=== PATIENT | male | born 1995 | race American Indian/Alaskan Native ===

== ENCOUNTER 2022-02-07 12:01 | Emergency (ER) | payer SELFPAY ==
--- NOTE | 2022-02-07 12:40 | Emergency Department Report ---
ED Dysuria HPI - HPI Chief Complaint: Urogenital-Male Stated Complaint: GROIN/URINE DISCOMFORT Time Seen by Provider: 02/07/22 12:13 Duration: 2 Days Location of Discomfort: Suprapubic Severity: Mild Symptoms: Dysuria: Yes, Frequency: No, Suprapubic Pain: No, Flank Pain: No, Fever: No, Hematuria: Yes, Abdominal Pain: No, Previous UTI's: No Other History: Patient is a 26-year-old male that comes in with discharge and dysuria. He is concerned for STI. No fever or chills. Denies HIV. Having sex with women. ED Review of Systems ROS: Stated complaint: GROIN/URINE DISCOMFORT Other details as noted in HPI Comment: All other systems reviewed and negative ED Past Medical Hx - Past Medical History Previous Medical History?: Yes Hx Asthma: Yes - Surgical History Past Surgical History?: No - Family History Family history: no significant - Social History Smoking Status: Current Some Day Smoker Substance Use Type: Marijuana - Medications Home Medications: Home Medications Medication Instructions Recorded Confirmed Last Taken Type Azithromycin [Zithromax Z-JAELYN] 1,000 mg PO ONCE #4 02/07/22 Unknown Rx DOXYCYCLINE Hyclate [Vibramycin 100 mg PO Q12HR #20 capsule 02/07/22 Unknown Rx CAP] metroNIDAZOLE [Flagyl] 2,000 mg PO ONCE #4 tab 02/07/22 Unknown Rx Dysuria Exam - Exam General: Vital signs noted. No distress. Alert and acting appropriately. Exam: Yes Moist Mucous Membranes, No CVA Tenderness, No Abdominal Tenderness, No Rigidity or Guarding ED Course Vital Signs 02/07/22 12:10 Temperature 97.4 F L Pulse Rate 86 Respiratory 16 Rate Blood Pressure 104/67 [Left] O2 Sat by Pulse 97 Oximetry ED Medical Decision Making - Medical Decision Making Lab Results 02/07/22 Range/Units 13:39 Urine Color Yellow (Yellow) Urine Turbidity Clear (Clear) Urine pH 6.0 (5.0-7.0) Ur Specific [place] 1.029 (1.003-1.030) Urine Protein 30 mg/dl (Negative) mg/dL Urine Glucose (UA) Neg (Negative) mg/dL Urine Ketones 20 (Negative) mg/dL Urine Blood Neg (Negative) Urine Nitrite Neg (Negative) Urine Bilirubin Neg (Negative) Urine Urobilinogen 2.0 (<2.0) mg/dL Ur Leukocyte Esterase Mod (Negative) Urine WBC (Auto) 159.0 H (0.0-6.0) /HPF Urine RBC (Auto) 5.0 (0.0-6.0) /HPF U Epithel Cells (Auto) 11.0 (0-13.0) /HPF Urine Bacteria (Auto) 1+ (Negative) /HPF Ur Renal Epithelial Cell 8 /LPF Urine Mucus 3+ /HPF Vital Signs 02/07/22 12:10 Temperature 97.4 F L Pulse Rate 86 Respiratory 16 Rate Blood Pressure 104/67 [Left] O2 Sat by Pulse 97 Oximetry UA noted. Patient given a gram of Rocephin IM. Patient being discharged with Flagyl, azithromycin and doxy. to take PO Patient being discharged home with discharge plan of care including diet, activity, medications and follow-up. He verbalizes understanding. On discharge patient is ambulatory, nonill appearing, afebrile, taking p.o. and in no acute distress Critical care attestation.: If time is entered above; I have spent that time in minutes in the direct care of this critically ill patient, excluding procedure time. ED Disposition Clinical Impression: STD (male) Disposition: 01 HOME / SELF CARE / HOMELESS Is pt being admited?: No Does the pt Need Aspirin: No Condition: Stable Instructions: Safe Sex Additional Instructions: take meds as given to you today follow up with pcp if problems persist stay well hydrated with water safe sex Prescriptions: metroNIDAZOLE [Flagyl] 2,000 mg PO ONCE #4 tab DOXYCYCLINE Hyclate [Vibramycin CAP] 100 mg PO Q12HR #20 capsule Azithromycin [Zithromax Z-JAELYN] 1,000 mg PO ONCE #4 Referrals: ERIN ZHOU MD [Staff Physician] - 3-5 Days Time of Disposition: 14:14
[2022-02-07 13:56] LABS: Bacteria,Urine 1+ /HPF (Negative); Bilirubin,Urine NEG (Negative); Blood,Urine NEG (Negative); Color,Urine Yellow (Yellow); Mucus,Urine 3+ /HPF; Renal Epithelial Cells,Urine 8 /LPF
[2022-02-07] MEDS ORDERED: LIDOCAINE-MPF (1%) 10 MG/1 ML VIAL 5 ML INFILTRATI ONE (14:12)
[2022-02-07 15:15] VITALS: BP 118/78
== END 2022-02-07 15:15 | disposition home or self-care (01) ==
LOC: ED 12:01
DX: A64 Unspecified sexually transmitted disease (principal); F17.200 Nicotine dependence, unspecified, uncomplicated; F12.90 Cannabis use, unspecified, uncomplicated
CPT/HCPCS: 81001; 99283; J0696; J3490

== ENCOUNTER 2022-06-09 08:10 | Emergency (ER) | payer SELFPAY ==
--- NOTE | 2022-06-09 11:19 | Emergency Department Report ---
ED General Adult HPI - General Chief complaint: Medical Clearance Stated complaint: STD SYM Source: patient Mode of arrival: Ambulatory Limitations: No Limitations - History of Present Illness Initial comments: 18-year-old male who presents for testicular 10 mL some tingling with urination. States oral sex contact 4 days ago. Denies fevers or chills or nausea or vomiting symptoms are exacerbated by voiding. Symptoms are relieved by nothing tried. Patient denies other symptoms. - Related Data Previous Rx's Medication Instructions Recorded Last Taken Type Azithromycin [Zithromax Z-JAELYN] 1,000 mg PO ONCE #4 02/07/22 Unknown Rx DOXYCYCLINE Hyclate [Vibramycin 100 mg PO Q12HR #20 capsule 02/07/22 Unknown Rx CAP] metroNIDAZOLE [Flagyl] 2,000 mg PO ONCE #4 tab 02/07/22 Unknown Rx Doxycycline Monohydrate 100 mg PO BID #14 tab 06/09/22 Unknown Rx Allergies Allergy/AdvReac Type Severity Reaction Status Date / Time No Known Allergies Allergy Verified 06/09/22 08:45 ED Review of Systems ROS: Stated complaint: STD SYM Other details as noted in HPI Constitutional: denies: chills, fever Eyes: denies: eye pain, eye discharge, vision change ENT: denies: ear pain, throat pain Respiratory: denies: cough, shortness of breath, wheezing Cardiovascular: denies: chest pain, palpitations Endocrine: no symptoms reported Gastrointestinal: denies: abdominal pain, nausea, vomiting, diarrhea Genitourinary: dysuria, frequency, testicular pain. denies: hematuria, discharge, testicular mass Musculoskeletal: denies: back pain, joint swelling, arthralgia Skin: denies: rash, lesions Neurological: denies: headache, weakness, paresthesias Psychiatric: denies: anxiety, depression Hematological/Lymphatic: denies: easy bleeding, easy bruising ED Past Medical Hx - Past Medical History Hx Asthma: Yes - Social History Smoking Status: Current Some Day Smoker Substance Use Type: Marijuana - Medications Home Medications: Home Medications Medication Instructions Recorded Confirmed Last Taken Type Azithromycin [Zithromax Z-JAELYN] 1,000 mg PO ONCE #4 02/07/22 Unknown Rx DOXYCYCLINE Hyclate [Vibramycin 100 mg PO Q12HR #20 capsule 02/07/22 Unknown Rx CAP] metroNIDAZOLE [Flagyl] 2,000 mg PO ONCE #4 tab 02/07/22 Unknown Rx Doxycycline Monohydrate 100 mg PO BID #14 tab 06/09/22 Unknown Rx ED Physical Exam - General Limitations: No Limitations General appearance: alert, in no apparent distress - Head Head exam: Present: normocephalic, normal inspection - Eye Eye exam: Present: EOMI Pupils: Present: normal accommodation - ENT ENT exam: Present: normal exam - Neck Neck exam: Present: normal inspection, full ROM. Absent: tenderness - Respiratory Respiratory exam: Present: normal lung sounds bilaterally. Absent: respiratory distress, wheezes - Cardiovascular Cardiovascular Exam: Present: regular rate, normal rhythm, normal heart sounds. Absent: systolic murmur, diastolic murmur, rubs, gallop - GI/Abdominal GI/Abdominal exam: Present: soft, normal bowel sounds. Absent: distended, tenderness - Rectal Rectal exam: Present: deferred - exam: Present: other (Deferred per patient) - Extremities Exam Extremities exam: Present: normal inspection, full ROM, normal capillary refill - Back Exam Back exam: Present: normal inspection, full ROM. Absent: CVA tenderness (R), CVA tenderness (L) - Neurological Exam Neurological exam: Present: alert, oriented X3 - Psychiatric Psychiatric exam: Present: normal affect, normal mood - Skin Skin exam: Present: warm, dry, intact, normal color. Absent: rash ED Course Vital Signs 06/09/22 08:40 Temperature 97.5 F L Pulse Rate 74 Respiratory 18 Rate Blood Pressure 123/82 [Left] O2 Sat by Pulse 99 Oximetry ED Medical Decision Making - Medical Decision Making Patient is voiding. There is no fevers no chills no abdominal pain is testicular swelling, no history of hernia no rash or open lesions. Plan treat for presumed STI. Patient to follow-up with health department for HIV and HSV screening. He verbalized agreement understanding discharge plan. Patient DC'd home in stable condition at this time. Critical care attestation.: If time is entered above; I have spent that time in minutes in the direct care of this critically ill patient, excluding procedure time. ED Disposition Clinical Impression: STI (sexually transmitted infection) Disposition: 01 HOME / SELF CARE / HOMELESS Is pt being admited?: No Does the pt Need Aspirin: No Condition: Stable Instructions: Safe Sex Additional Instructions: Take medications as prescribed, follow-up with health department in 2 to 3 days for HIV and HSV screening. Turn to ED should symptoms worsen. Prescriptions: Doxycycline Monohydrate 100 mg PO BID #14 tab Referrals: [facility] Depart [Outside] - 3-5 Days Forms: Work/School Release Form(ED) Time of Disposition: 11:20
[2022-06-09 11:54] VITALS: BP 130/85
== END 2022-06-09 11:53 | disposition home or self-care (01) ==
LOC: ED 08:10
DX: A64 Unspecified sexually transmitted disease (principal); J45.909 Unspecified asthma, uncomplicated; F12.90 Cannabis use, unspecified, uncomplicated; F17.200 Nicotine dependence, unspecified, uncomplicated; Z79.899 Other long term (current) drug therapy
CPT/HCPCS: 99282